=== PATIENT | male | born 1995 | race Caucasian/White ===

== ENCOUNTER 2017-04-23 13:37 | Emergency (ER) | payer MEDICAID ==
[~2017-04-23] VITALS: Ht 182.9 cm; Wt 79.5 kg
[~2017-04-23 13:37] MED LIST: PRED20TA PO
[2017-04-23] MEDS ORDERED: CLIN300C53 PO (14:18)
[2017-04-23 14:30] VITALS: BP 138/74
== END 2017-04-23 14:31 | disposition home or self-care (01) ==
LOC: ER 13:38
DX: L03.114 Cellulitis of left upper limb (principal); L03.113 Cellulitis of right upper limb; R21 Rash and other nonspecific skin eruption; F17.200 Nicotine dependence, unspecified, uncomplicated; Z88.0 Allergy status to penicillin
CPT/HCPCS: 99283

== ENCOUNTER 2017-08-31 19:00 | Emergency (ER) | payer MEDICAID ==
[~2017-08-31] VITALS: Ht 188 cm; Wt 78.8 kg
[2017-08-31] MEDS ORDERED: ketorolac tromethamine 15mg/ml inj. IM ONE (19:40)
[2017-08-31] MEDS ORDERED: IBUP-1986 PO (19:42)
[2017-08-31 19:59] VITALS: BP 152/77
== END 2017-08-31 20:01 | disposition home or self-care (01) ==
LOC: ER 19:01
DX: M25.511 Pain in right shoulder (principal); Z88.0 Allergy status to penicillin; Z79.899 Other long term (current) drug therapy
CPT/HCPCS: 96372; 99283; A4565; J1885

== ENCOUNTER 2019-11-20 18:50 | Emergency (ER) | payer MEDICAID ==
[~2019-11-20] VITALS: Ht 188 cm; Wt 86.4 kg
[~2019-11-20 18:50] MED LIST changes: +IBUP-1986 PO
--- NOTE | 2019-11-20 19:05 | NUR ---
EDP at bedside to examine the pt. Pt. answering appropriately. He remains to be lethargic, but VSS. EDP to add orders in.
[2019-11-20 19:17] LABS: BASOPHILS % (AUTO) 0.5 % (0-1); EOSINOPHILS # (AUTO) 0.3 X10'3 (0-0.9); EOSINOPHILS % (AUTO) 3.8 % (0-6); HEMATOCRIT 45.4 % (42.0-52.0); LYMPHOCYTES # (AUTO) 1.4 X10'3 (1.1-4.8); LYMPHOCYTES % (AUTO) 20.8 % (21-51); MEAN CORPUSCULAR HEMOGLOBIN 28.2 PG (27.0-31.0); MEAN CORPUSCULAR HGB CONC 33.1 g/dL (33.0-36.5); MEAN CORPUSCULAR VOLUME 85.1 FL (78-98); MEAN PLATELET VOLUME 8.3 FL (7.4-10.4); MONOCYTES # (AUTO) 0.7 X10'3 (0-0.9); NEUTROPHILS # (AUTO) 4.4 X10'3 (1.8-7.7); NEUTROPHILS % (AUTO) 64.9 % (42-75); PLATELET COUNT 223 X10'3 (140-440); RED BLOOD COUNT 5.33 X10'6 (4.70-6.10); RED CELL DISTRIBUTION WIDTH 13.1 % (11.5-14.5); WHITE BLOOD COUNT 6.8 X10'3 (4.5-11.0)
[2019-11-20 19:26] LABS: ALANINE AMINOTRANSFERASE 21 U/L (12-78); ALBUMIN 4.2 G/DL (3.4-5.0); ALBUMIN/GLOBULIN RATIO 1.2 (1.1-1.5); ALKALINE PHOSPHATASE 73 IU/L (46-116); ANION GAP 10 (8-16); ASPARTATE AMINO TRANSFERASE 19 U/L (10-37); BILIRUBIN,TOTAL 0.5 MG/DL (0.1-1.0); BLOOD UREA NITROGEN 13 MG/DL (7-18); BUN/CREATININE RATIO 12.7 (5.4-32.0); CALCIUM 7.9 MG/DL (8.5-10.1); CHLORIDE 102 MMOL/L (99-107); CREATININE 1.02 MG/DL (0.60-1.10); GLUCOSE 154 MG/DL (70-104); POTASSIUM 3.2 MMOL/L (3.5-5.1); SODIUM 140 MMOL/L (135-145); TOTAL CARBON DIOXIDE 28.2 MMOL/L (24-32); TOTAL PROTEIN 7.6 G/DL (6.4-8.2); eGFR 88 ML/MIN
[2019-11-20 19:52] VITALS: BP 130/74
== END 2019-11-20 19:59 | disposition home or self-care (01) ==
LOC: ER 18:51
DX: T40.1X1A Poisoning by heroin, accidental (unintentional), initial encounter (principal); F12.90 Cannabis use, unspecified, uncomplicated; F11.90 Opioid use, unspecified, uncomplicated; Z72.89 Other problems related to lifestyle; Z88.0 Allergy status to penicillin; Z79.899 Other long term (current) drug therapy; Y92.89 Other specified places as the place of occurrence of the external cause
CPT/HCPCS: 36415; 71045; 80053; 85025; 93005; 99285

== ENCOUNTER 2024-07-05 09:29 | Emergency (ER) | payer MEDICAID ==
[~2024-07-05] VITALS: Ht 185.4 cm; Wt 84.1 kg
[2024-07-05 09:33] VITALS: BP 133/90; PULSE 95; RESP 18; O2SAT 100
[2024-07-05 10:04] VITALS: TEMP 98.3
== END 2024-07-05 10:08 | disposition home or self-care (01) ==
LOC: ER 09:30
DX: Z00.8 Encounter for other general examination (principal); F11.90 Opioid use, unspecified, uncomplicated; F17.210 Nicotine dependence, cigarettes, uncomplicated; F12.90 Cannabis use, unspecified, uncomplicated; Z88.0 Allergy status to penicillin
CPT/HCPCS: 99281